=== PATIENT | female | born 1975 | race Caucasian/White ===

== ENCOUNTER → 2016-12-12 | Outpatient (CLI) | payer BC ==
--- OUTSIDE RECORDS SUMMARY | 2016-12-12 15:36 | XMS REPORT | Continuity of Care Document ---
Author Author [facility] Address Unknown Phone Unavailable Allergies Active Description Code Type Severity Reaction Onset Reported/Identified Relationship to Patient Clinical Status Yes No Known Drug Allergies [id number] Drug Allergy Unknown N/ A 06/08/2009 Medications Problems Date Dx Coded Attending Type Code Diagnosis Diagnosed By 03/04/2014 MARK BENITES SHAN A 462 ACUTE PHARYNGITIS 03/04/2014 RAJJAVADE ORNAMENTER, SHAN A 465.9 ACUTE UPPER RESPIRATORY INFECTIONS OF UNSPECIFIED SITE 03/04/2014 RAJJAVADE ORNAMENTER, SHAN A 462 ACUTE PHARYNGITIS 03/04/2014 RAJJAVADE ORNAMENTER, SHAN A 465.9 ACUTE UPPER RESPIRATORY INFECTIONS OF UNSPECIFIED SITE 05/06/2014 MARK BENITES SHAN A V06.1 TDAP DX 05/06/2014 MARK BENITES SHAN A V70.3 SPORTS PHYSICAL 07/21/2015 SUDHA RAMSEY, ALEXANDER N Ot 620.2 07/29/2015 SUDHA RAMSEY, ALEXANDER N Ot 620.2 Procedures Results Encounters ACCT No. Visit Date/Time Discharge Status Pt. Type Provider Facility Loc./Unit Complaint [id number] 05/06/2014 10:18:00 05/06/2014 23: 59:59 CLS Outpatient FCO FLORES APRNYL A [id number] 03/04/2014 13:25:00 03/04/2014 23: 59:59 CLS Outpatient MARK BENITES SHAN A
--- NOTE | 2016-12-18 08:54 | Diagnostic Imaging Report ---
EXAMINATION: Bilateral screening mammogram with a Computer Aided Detection (CAD) system. INDICATION: Screening. PERSONAL HISTORY: No current complaints stated on the questionnaire. COMPARISON: None. This is a baseline exam. FINDINGS: The breasts are composed of heterogeneously dense parenchyma which may decrease mammographic sensitivity. There is central asymmetry with architectural distortion questioned in the left CC projection. No definite correlate on the MLO view is seen. Occasional punctate calcifications are noted. IMPRESSION: Dense breasts. Questionable central left CC projection architectural distortion. Focal compression views and bilateral ultrasound would be recommended. ACR BI-RADS Category 0: Incomplete. (Needs additional imaging evaluation). Result letter will be mailed to the patient. Note: At least 10% of breast cancer is not imaged by mammography. Dictated by: Dictated on workstation # [id number]
== END ==
LOC: RAD 15:33
PROVIDERS: ATTEND Obstetrics & Gynecology
DX: Z12.31 Encounter for screening mammogram for malignant neoplasm of breast (principal)
CPT/HCPCS: 77067

== ENCOUNTER → 2017-01-01 | Outpatient (CLI) | payer BC ==
--- OUTSIDE RECORDS SUMMARY | 2017-01-01 14:15 | XMS REPORT | Continuity of Care Document ---
Author Author [facility] Address Unknown Phone Unavailable Allergies Active Description Code Type Severity Reaction Onset Reported/Identified Relationship to Patient Clinical Status Yes No Known Drug Allergies [id number] Drug Allergy Unknown N/ A 06/08/2009 Medications Problems Date Dx Coded Attending Type Code Diagnosis Diagnosed By 03/04/2014 MARK WAITER/WAITRESS CAPTAIN, SHAN A 462 ACUTE PHARYNGITIS 03/04/2014 RAJOTTE WAITER/WAITRESS CAPTAIN, SHAN A 465.9 ACUTE UPPER RESPIRATORY INFECTIONS OF UNSPECIFIED SITE 03/04/2014 RAJOTTE WAITER/WAITRESS CAPTAIN, SHAN A 462 ACUTE PHARYNGITIS 03/04/2014 RAJJAVADE WAITER/WAITRESS CAPTAIN, SHAN A 465.9 ACUTE UPPER RESPIRATORY INFECTIONS OF UNSPECIFIED SITE 05/06/2014 RAJJAVADE WAITER/WAITRESS CAPTAIN, SHAN A V06.1 TDAP DX 05/06/2014 RAJDIANNE BENITES SHAN A V70.3 SPORTS PHYSICAL 07/21/2015 SUDHA RAMSEY, ALEXANDER N Ot 620.2 07/29/2015 SUDHA RAMSEY, ALEXANDER N Ot 620.2 12/13/2016 SUDHA RAMSEY, ALEXANDER N Ot Z12.31 ENCNTR SCREEN MAMMOGRAM FOR MALIGNANT NE 12/13/2016 ALEXANDER HALEY MD N Ot Z12.31 ENCNTR SCREEN MAMMOGRAM FOR MALIGNANT NE 12/20/2016 SUDHA RAMSEY, ALEXANDER N Ot Z12.31 ENCNTR SCREEN MAMMOGRAM FOR MALIGNANT NE Procedures Results Encounters ACCT No. Visit Date/Time Discharge Status Pt. Type Provider Facility Loc./Unit Complaint [id number] 05/06/2014 10:18:00 05/06/2014 23: 59:59 CLS Outpatient SHAN FLORES APRN [id number] 03/04/2014 13:25:00 03/04/2014 23: 59:59 CLS Outpatient SHAN FLORES APRN
--- NOTE | 2017-01-01 14:50 | Diagnostic Imaging Report ---
EXAMINATION: Left breast diagnostic mammogram. INDICATION: Asymmetry in the central aspect of the left cc projection. The current study was also evaluated with a Computer Aided Detection (CAD) system. FINDINGS: The left breast demonstrate dense parenchyma with focal compression views demonstrate less prominent asymmetry compared to the previous study in favor of summation artifact of parenchyma. IMPRESSION: Focal compression views demonstrate less prominent asymmetry likely related to summation artifact of parenchyma. Ultrasound evaluation pending. BI-RADS 0. ACR BI-RADS Category 0: Incomplete. (Needs additional imaging evaluation). Result letter will be mailed to the patient. Note: At least 10% of breast cancer is not imaged by mammography. Dictated by: Dictated on workstation # [id number]
--- NOTE | 2017-01-01 21:29 | Diagnostic Imaging Report ---
Right breast ultrasound. INDICATION: Architectural distortion asymmetry seen in the left CC projection centrally, dense breasts. FINDINGS: The 4 quadrants and retroareolar region of each breast was scanned with no abnormality seen. IMPRESSION: Negative study. The questioned architectural distortion in the central aspect of the left CC projection is likely summation artifact of parenchyma. Followup mammogram in 6 months is recommended to ensure stability or resolution. ACR BI-RADS Category 3: Probably benign findings. Dictated by: Dictated on workstation # [id number]
== END ==
LOC: RAD 14:09
PROVIDERS: ATTEND Obstetrics & Gynecology
DX: R92.8 Other abnormal and inconclusive findings on diagnostic imaging of breast (principal)

== ENCOUNTER → 2017-07-03 | Outpatient (CLI) | payer BC ==
--- NOTE | 2017-07-03 14:47 | Diagnostic Imaging Report ---
INDICATION: Six-month followup. Comparison made with prior examination 12/12/2016. FINDINGS: There is moderate amount of residual fibroglandular tissue in the left breast. The previously described area of asymmetry in the central left breast is essentially unchanged. There is no new dominant mass, spiculated lesion, or suspicious calcifications identified. Skin, nipples, and axilla unremarkable. The ultrasound was not repeated as it was negative on the prior evaluation. IMPRESSION: Category 2 benign. ACR BI-RADS Category 2: Benign findings. Result letter will be mailed to the patient. Note: At least 10% of breast cancer is not imaged by mammography. The patient should resume bilateral screening mammography in December 2017. Dictated by: Dictated on workstation # [id number]
== END ==
LOC: RAD 14:20
PROVIDERS: ATTEND Nurse Practitioner
DX: R92.8 Other abnormal and inconclusive findings on diagnostic imaging of breast (principal)

== ENCOUNTER → 2018-07-22 | Outpatient (CLI) | payer BC ==
--- NOTE | 2018-07-22 10:46 | Diagnostic Imaging Report ---
INDICATION: Routine screening. Comparison is made with prior mammogram from 12/12/2016. 2-D and 3-D bilateral screening mammography was performed with a Computer Aided Detection (CAD) system. FINDINGS: Both breasts are heterogeneously dense, limiting the sensitivity of mammography. The parenchymal pattern is stable. No mass or malignant appearing microcalcifications are seen. Axillae are unremarkable. IMPRESSION: No mammographic features suspicious for malignancy are identified. ACR BI-RADS Category 1: Negative. Result letter will be mailed to the patient. Note: At least 10% of breast cancer is not imaged by mammography. Dictated by: Dictated on workstation # [id number]
== END ==
LOC: RAD 08:58
PROVIDERS: ATTEND Nurse Practitioner
DX: Z12.31 Encounter for screening mammogram for malignant neoplasm of breast (principal)
CPT/HCPCS: 77067

== ENCOUNTER → 2020-05-17 | Outpatient (CLI) | payer BC ==
--- NOTE | 2020-05-17 10:57 | Diagnostic Imaging Report ---
INDICATION: Routine screening. Comparison is made with prior mammogram from 07/22/2018 and 12/12/2016. 2-D and 3-D bilateral screening mammography was performed with CAD. Both breasts are heterogeneously dense, limiting the sensitivity of mammography. There is a parenchymal density in the superior right breast mid to posterior depth. Is best seen on the MLO view. No corresponding density on the CC view is seen but this appears to be laterally located on the tomographic images. Additional views are recommended. The left breast is unremarkable. No malignant appearing microcalcifications are seen. Axillae are unremarkable. IMPRESSION: BI-RADS 0 Right breast density. Additional views are recommended for further evaluation. ACR BI-RADS Category 0: Incomplete. (Needs additional imaging evaluation). Result letter will be mailed to the patient. Note: At least 10% of breast cancer is not imaged by mammography. Dictated by: Dictated on workstation # [id number]
== END ==
LOC: RAD 09:19
PROVIDERS: ATTEND Obstetrics & Gynecology
DX: Z12.31 Encounter for screening mammogram for malignant neoplasm of breast (principal)
CPT/HCPCS: 77063; 77067

== ENCOUNTER → 2020-05-27 | Outpatient (CLI) | payer BC ==
--- NOTE | 2020-05-27 10:20 | Diagnostic Imaging Report ---
INDICATION: Right breast density. Patient presents for additional views. COMPARISON: Correlation is made with the screening study from 05/17/2020. TECHNIQUE: Unilateral right 2D and 3D diagnostic mammography was performed. This includes exaggerated CC, spot compression ML, and conventional 90 degree lateral views. FINDINGS: The additional views fail to demonstrate a discrete mass. The area of density most likely represents superimposed tissue. Even so, an ultrasound over this area will be recommended. No suspicious microcalcifications are seen. IMPRESSION: The additional views fail to demonstrate a discrete mass. Even so, directed sonographic interrogation of the upper outer right breast approximately 8 cm from the nipple is recommended and will be performed today. ACR BI-RADS Category 0: Incomplete. (Needs additional imaging evaluation). Result letter will be mailed to the patient. Note: At least 10% of breast cancer is not imaged by mammography. Dictated by: Dictated on workstation # [id number]
--- NOTE | 2020-05-27 11:11 | Diagnostic Imaging Report ---
Indication: Right breast density. Correlation is made with the diagnostic mammogram earlier the same day as well as the screening mammogram from 05/17/2020. Sonographic interrogation of the upper outer right breast was performed. No sonographic abnormality seen. No solid or cystic mass is detected. IMPRESSION: BI-RADS Category 1 No significant abnormality is detected. The patient may return to routine annual screening mammography. ACR BI-RADS Category 1: Negative. Result letter will be mailed to the patient. Note: At least 10% of breast cancer is not imaged by mammography. Dictated by: Dictated on workstation # [id number]
== END ==
LOC: RAD 09:28
PROVIDERS: ATTEND Obstetrics & Gynecology
DX: R92.2 Inconclusive mammogram (principal); R92.8 Other abnormal and inconclusive findings on diagnostic imaging of breast
CPT/HCPCS: 76642; 77065; G0279

== ENCOUNTER → 2021-06-17 | Outpatient (CLI) | payer BC ==
--- NOTE | 2021-06-20 09:55 | Diagnostic Imaging Report ---
INDICATION: Routine screening. Comparison is made with prior mammogram from 05/17/2020 and 07/22/2018. 2-D and 3-D bilateral screening mammography was performed with CAD. Both breasts are heterogeneously dense, limiting the sensitivity of mammography. No mass or malignant-appearing microcalcifications are seen. Axillae are unremarkable. IMPRESSION: BI-RADS Category 1 No mammographic features suspicious for malignancy are identified. ACR BI-RADS Category 1: Negative. Result letter will be mailed to the patient. Note: At least 10% of breast cancer is not imaged by mammography. Dictated by: Dictated on workstation # [id number]
== END ==
LOC: RAD 15:45
PROVIDERS: ATTEND Obstetrics & Gynecology
DX: Z12.31 Encounter for screening mammogram for malignant neoplasm of breast (principal)
CPT/HCPCS: 77063; 77067